=== PATIENT | female | born 1995 | race Caucasian/White ===

== ENCOUNTER 2016-11-17 22:39 | Emergency (ER) | payer OTHER ==
[2016-11-17 23:47] LABS: HEMOGLOBIN 12.8 gm/dl (12.3-15.3); RED BLOOD COUNT 4.47 M/UL (4.00-5.10); WHITE BLOOD COUNT 10.5 K/UL (4.5-11.0)
[2016-11-18 00:06] LABS: BUN/CREATININE RATIO 15 (0-10)
== END 2016-11-18 ==
LOC: ER1 22:39
PROVIDERS: Physician Assistant
DX: T43.592A Poisoning by other antipsychotics and neuroleptics, intentional self-harm, initial encounter (principal); T42.4X2A Poisoning by benzodiazepines, intentional self-harm, initial encounter; T39.312A Poisoning by propionic acid derivatives, intentional self-harm, initial encounter; F31.9 Bipolar disorder, unspecified; F90.9 Attention-deficit hyperactivity disorder, unspecified type; Z79.899 Other long term (current) drug therapy
CPT/HCPCS: 36415; 80053; 80307; 81001; 83735; 84703; 85025; 93005; 99285; G0480; J7030

== ENCOUNTER 2021-06-24 04:05 | Emergency (ER) | payer OTHER ==
[~2021-06-24 04:05] MED LIST: IBUPROFEN600 MG PO
[2021-06-24 06:37] LABS: HEMOGLOBIN 13.7 gm/dl (12.3-15.3); RED BLOOD COUNT 4.57 M/UL (4.00-5.10); WHITE BLOOD COUNT 11.6 K/UL (4.5-11.0)
[2021-06-24 07:33] LABS: BUN/CREATININE RATIO 25 (0-10)
[2021-06-24] MEDS ORDERED: CITRATE OF MAG296 ML PO (10:06)
[2021-06-24] MEDS ORDERED: FLEET ENEMA133 ML PR (10:06)
== END 2021-06-24 10:25 | disposition home or self-care (01) ==
LOC: ER1 04:05
PROVIDERS: Physician Assistant
DX: K76.0 Fatty (change of) liver, not elsewhere classified (principal); K59.00 Constipation, unspecified; J45.909 Unspecified asthma, uncomplicated; K21.9 Gastro-esophageal reflux disease without esophagitis; Z91.048 Other nonmedicinal substance allergy status; Z88.6 Allergy status to analgesic agent
CPT/HCPCS: 80053; 81001; 83690; 84703; 85025; 96374; 96375; 99284; C9113; J1885; J2405; Q9967

== ENCOUNTER 2021-06-27 22:46 | Emergency (ER) | payer OTHER ==
[~2021-06-27 22:46] MED LIST changes: +CITRATE OF MAG296 ML PO; +FLEET ENEMA133 ML PR
[2021-06-27 23:23] LABS: HEMOGLOBIN 14.1 gm/dl (12.3-15.3); RED BLOOD COUNT 4.7 M/UL (4.00-5.10); WHITE BLOOD COUNT 9.1 K/UL (4.5-11.0)
[2021-06-28 00:04] LABS: BUN/CREATININE RATIO 24 (0-10)
== END 2021-06-28 05:19 | disposition home or self-care (01) ==
LOC: ER1 22:46
PROVIDERS: Physician Assistant
DX: G43.109 Migraine with aura, not intractable, without status migrainosus (principal); Z87.891 Personal history of nicotine dependence
CPT/HCPCS: 70450; 80053; 82550; 82553; 83874; 84484; 85025; 96374; 96375; 99284; J0780; J1885